=== PATIENT | female | born 1945 | race Hispanic/Latino ===

== ENCOUNTER 2017-08-02 09:27 | Inpatient (IN) | payer MEDICARE, BC ==
[2017-08-02 09:38] VITALS: BMI 29.2
[2017-08-02] MEDS ORDERED: Sodium Chloride 0.9% 1,000 ML IV ONE ×2 (09:46→19:30)
--- NOTE | 2017-08-02 09:47 | C.PDOC ---
History Of Present Illness 72 yr old female referred to ER by PMD for acute appendicitis and RLQ pain for the past 6 days. Patient states the pain is "dull", intermittent and localized. Patient also reports of subjective fever and nausea. Patient is s'/p outpatient CT on 08/01 with positive appendicitis. Patient was advised tasia come to ER at that time but wanted to come in today. Patient is NPO since 1699. Denies nausea , vomiting, diarrhea, incontinence, weakness or numbness. REFERRED BY PMD FOR ACUTE APPY. RLQ PAIN X 6 DAYS. "DULL", INTERMIT, LOCALIZED. SUBJ FEVER. +NAUSEA. SP OUTPT CT 08/01 +APPY. PT WAS ADVISED TO COME TO ER @ THAT TIME BUT WANTED TO COME IN TODAY. PSH NEG. NPO 1699 EXAM NONTOXIC NAD ABD +RLQ TEND MILD SOFT NO R/G REMAINDER NEG Time Seen by Provider: 08/02/17 09:44 Chief Complaint (Nursing): Abdominal Pain History Per: Patient History/Exam Limitations: no limitations Onset/Duration Of Symptoms: Days (6), Intermittent Episodes Location Of Pain/Discomfort: RLQ Past Medical History Reviewed: Historical Data, Nursing Documentation, Vital Signs Vital Signs: Last Vital Signs Temp Pulse 73 08/02/17 10:34 Resp 18 08/02/17 10:34 BP 150/71 08/02/17 10:34 Pulse Ox 99 08/02/17 10:34 - [facility] Procedures OTHER LOCAL DESTRUC SKIN (04/27/98) Family History: States: No Known Family Hx Review Of Systems Except As Marked, All Systems Reviewed And Found Negative. Constitutional: Positive for: Fever (Subjective) Gastrointestinal: Positive for: Abdominal Pain (RLQ). Negative for: Nausea, Vomiting, Diarrhea Genitourinary: Negative for: Incontinence Neurological: Negative for: Weakness, Numbness Physical Exam - Physical Exam Appears: Non-toxic, No Acute Distress Skin: Warm, Dry, No Rash Head: Atraumatic, Normacephalic Oral Mucosa: Moist Chest: Symmetrical, No Tenderness Cardiovascular: Rhythm Regular, No Murmur Respiratory: Normal Breath Sounds, No Rales, No Rhonchi, No Stridor, No Wheezing Gastrointestinal/Abdominal: Soft, Tenderness (RLQ mild tenderness), No Guarding , No Rebound Back: Normal Inspection, No CVA Tenderness Extremity: Normal ROM, No Swelling Neurological/Psych: Oriented x3, Normal Speech, Normal Motor ED Course And Treatment - Laboratory Results Result Diagrams: 08/02/17 10:16 08/02/17 10:16 ECG: Interpreted By Me ECG Rhythm: Sinus Rhythm ECG Interpretation: Normal Rate From EC (BPM) - Radiology CXR: Interpreted by Me, Viewed By Me CXR Interpretation: Yes: No Acute Disease Progress - Re-Evaluation Re-evaluation Note: 08/02/17 09:47 d/w dr loera will admit. - Data Reviewed Data Reviewed: Lab, Diagnostic imaging, EKG, Old records - Continuity of Care Discussed patient case with:: Patient, PMD Discussed pt. case with fitness consultant/specialty: General Surgery Medical Decision Making Medical Decision Making: PLAN: * CXR * EKG * CBC * CMP * Urinalysis * Sodium Chloride IV Disposition Counseled Patient/Family Regarding: Studies Performed, Diagnosis - Disposition Disposition: HOSPITALIZED Disposition Time: 09:48 Condition: STABLE - POA Present On Arrival: None - Clinical Impression Clinical Impression: Acute appendicitis - Scribe Statement The provider has reviewed the documentation as recorded by the Garrett Priest Provider Attestation: All medical record entries made by the Nasreenibe were at my direction and personally dictated by me. I have reviewed the chart and agree that the record accurately reflects my personal performance of the history, physical exam, medical decision making, and the department course for this patient. I have also personally directed, reviewed, and agree with the discharge instructions and disposition. Decision To Admit - Pt Status Changed To: Hospital Disposition Of: Inpatient - Admit Certification Admit to Inpatient:: After my assessment, the patient will require hospitalization for at least two midnights. This is because of the severity of symptoms shown, intensity of services needed, and/or the medical risk in this patient being treated as an outpatient. - InPatient: Physician Admission Certification:: SEE NOTE - . Bed Request Type: Regular Admitting Physician: Bertha Loera Patient Diagnosis: Acute appendicitis
--- NOTE | 2017-08-02 10:10 | RAD ---
PROCEDURE: CHEST RADIOGRAPH, 1 VIEW HISTORY: Pre Op COMPARISON: None available. FINDINGS: LUNGS: No consolidation. The interstitial and pulmonary vascular markings are mildly prominent. 1.2 x 0.6 cm oval hyper dense nodularity projecting over left upper lobe, anterior left 2nd rib and the estimated posterior 6th rib Granuloma versus bone island are most likely explanations PLEURA: No pneumothorax or pleural fluid seen. CARDIOVASCULAR: Mall heart size. Pulmonary vascular and interstitial markings mildly prominent. Right hilum also borderline prominent. Recommend comparison with any outside chest x-rays to your sore older to ensure stability. If no films exists than a CT chest to exclude any right hilar pathology is advised. OSSEOUS STRUCTURES: No significant abnormalities. VISUALIZED UPPER ABDOMEN: Normal. OTHER FINDINGS: None. IMPRESSION: No acute pulmonary infiltrate Borderline prominence to the right hilum -indeterminate. Recommend comparison with outside chest x-rays -2 years or older to ensure stability-if available. The interstitial and pulmonary vasculature markings are also borderline prominent. These may be a chronic status. Left upper lobe calcified granuloma versus bone island.
[2017-08-02 10:21] LABS: BASO % 0.4 % (0.0-2.0); EOS # 0.1 K/uL (0.0-0.7); EOS % 2.8 % (0.0-4.0); HEMATOCRIT 50.1 % (34.0-47.0); LYMPH # 1.3 K/uL (1.0-4.3); LYMPH % 27.8 % (20.0-40.0); MEAN CELL VOLUME 92.4 fL (81.0-99.0); MEAN CORPUSCULAR HGB CONC 34.6 g/dL (33.0-37.0); MEAN PLATELET VOLUME 9.7 fL (7.2-11.7); MONO # 0.5 K/uL (0.0-0.8); MONO % 9.8 % (0.0-10.0); NRBC % 0.1 % (0.0-2.0); RED CELL DISTRIBUTION WIDTH 13.5 % (11.5-14.5); WHITE BLOOD COUNT 4.6 K/uL (4.8-10.8)
[2017-08-02 10:35] LABS: CHLORIDE 97 mmol/L (98-107); POTASSIUM 3.8 mmol/L (3.6-5.2); SODIUM 135 mmol/L (132-148)
[2017-08-02 10:37] LABS: URINE BACTERIA RARE (<OCC); URINE BILIRUBIN NEGATIVE (NEGATIVE); URINE BLOOD NEGATIVE (NEGATIVE); URINE COLOR Straw (YELLOW); URINE GLUCOSE (UA) NORMAL (Normal); URINE KETONE NEGATIVE (NEGATIVE); URINE LEUKOCYTE ESTERASE NEG Leu/uL (Negative); URINE PROTEIN NEGATIVE (NEGATIVE); URINE UROBILINOGEN NORMAL mg/dL (0.2-1.0); WBC URINE < 1 /hpf (0-5)
[2017-08-02 10:37] LABS: GFR AFRICAN-AMERICAN > 60
[2017-08-02 10:38] LABS: ALB/GLOB RATIO 1.6 (1.0-2.1); ALKALINE PHOSPHATASE 58 U/L (38-126); ALT/SGPT 34 U/L (9-52); AST/SGOT 38 U/L (14-36); BILIRUBIN,TOTAL 0.8 mg/dL (0.2-1.3); BLOOD UREA NITROGEN 14 mg/dL (7-17); CARBON DIOXIDE 27 mmol/L (22-30); GLUCOSE,RANDOM 118 mg/dL (65-105); TOTAL PROTEIN 7.6 g/dL (6.3-8.3)
[2017-08-02 10:39] LABS: CALCIUM 9.3 mg/dl (8.6-10.4)
[2017-08-02] MEDS ORDERED: Lactated Ringer's 1,000 ML IV ONE (16:18)
[2017-08-02] MEDS ORDERED: Propofol 10 mg/ml Inj (20 ML) ONE (16:21)
[2017-08-02] MEDS ORDERED: Midazolam 2 MG/2 ML VIAL ONE (16:21)
[2017-08-02] MEDS ORDERED: Succinylcholine Chloride 20 mg/ml Syr (5 ml) IV ONE (16:22)
[2017-08-02] MEDS: Piperacill/Tazo 3.375gm in Dex 3.375 GM/50 ML BAG IVPB SCH ×3 (16:35→21:59)
[2017-08-02] MEDS ORDERED: Bupivacaine HCl 0.25% PF (10 ml) Inj ONE (17:47)
[2017-08-02] MEDS ORDERED: Oxycodone/Acetaminophen 5/325 mg Tab PO PRN (18:09)
--- NOTE | 2017-08-02 18:09 | PCM.SURG1 ---
Surgeon's Initial Post Op Note - Surgeon's Notes Surgeon: Dr. Carpio Mosaic Layer: Dr. Delcid PGY2 Type of Anesthesia: General Endo Pre-Operative Diagnosis: acute appendicitis Operative Findings: see dictation Post-Operative Diagnosis: same Operation Performed: laparoscopic appendectomy, KALINA Specimen/Specimens Removed: appendix Estimated Blood Loss: EBL {In ML}: 20 Blood Products Given: N/A Drains Used: No Drains Post-Op Condition: Good Date of Surgery/Procedure: 08/02/17 Time of Surgery/Procedure: 16:15
[2017-08-02] MEDS: HYDROmorphone 0.5 mg/0.5 ml ISec IVP PRN ×3 (18:22→19:09)
[2017-08-02] MEDS ORDERED: Morphine 4 MG/ML VIAL IVP PRN (22:08)
[2017-08-03] MEDS: Oxycodone/Acetaminophen 5/325 mg Tab PO PRN ×2 (02:21→12:43)
[2017-08-03] MEDS: Benzocaine/Menthol (Cepacol) Lozenge MT PRN ×2 (02:24→10:38)
[2017-08-03] MEDS: Piperacill/Tazo 3.375gm in Dex 3.375 GM/50 ML BAG IVPB SCH ×4 (05:33→21:21)
--- NOTE | 2017-08-03 09:12 | OP ---
PROCEDURE DATE: 08/02/2017 PREOPERATIVE DIAGNOSIS: Acute appendicitis. POSTOPERATIVE DIAGNOSIS: Acute appendicitis. PROCEDURE CARRIED OUT: Laparoscopic appendectomy. SURGEON: Mark Carpio Jr., MD SECURITY ASSESSOR: Dr. Scott. ANESTHESIOLOGIST: Mr. Rajesh CRNA. INDICATIONS: The patient is a older women admitted to the hospital with abdominal pain, found to have appendicitis on the CAT scan. OPERATIVE FINDINGS: General abdominal exploration was unremarkable. There were some adhesions in the lower midline, which initially and required lysis of adhesions. The appendix tip was very swollen as said on the CAT scan. We were able to divide the base of the appendix with stapling device and then using a ligature device to divide the mesoappendix. Hemostasis was excellent. The ports were closed completely without any evidence of any air leak and the skin was closed with subcuticular closure. Blood loss for the procedure was less than 20 mL. Operation carried out was laparoscopic appendectomy. The findings were consistent with acute appendicitis. Makr Carpio Jr., MD cc: Bertha Loera MD
[2017-08-03] MEDS ORDERED: NISOLDIPINE 17 MG PO SCH (10:00)
--- NOTE | 2017-08-03 10:31 | CP.PCM.PN ---
Subjective - Date & Time of Evaluation Date of Evaluation: 08/03/17 Time of Evaluation: 07:00 - Subjective Subjective: SURGERY PROGRESS NOTE FOR DR. GARDNER Patient seen and examined at bedside. She tolerating her regular diet for breakfast. She is urinating and ambulating. She has not used the IS yet. She has some pain at the incision sites. She complains of sore throat. She has cepacol ordered. Objective - Vital Signs/Intake and Output Vital Signs (last 24 hours): Temp Pulse Resp BP Pulse Ox 98.0 F 58 L 18 142/68 93 L 08/03/17 07:50 08/03/17 07:50 08/03/17 07:50 08/03/17 07:50 08/03/17 07:50 Intake and Output: 08/03/17 08/03/17 06:59 18:59 Intake Total 350 Balance 350 - Medications Medications: Current Medications Acetaminophen (Tylenol 325mg Tab) 650 mg PO Q6 PRN PRN Reason: Pain, Mild (1-3) Benzocaine/Menthol (Cepacol Sore Throat) 1 tee MT Q2 PRN PRN Reason: Sore Throat Last Admin: 08/03/17 02:24 Dose: 1 tee Fenofibrate (Tricor) 48 mg PO DAILY [facility] Home Med (Dexlansoprazole [Dexilant]) 60 mg PO DAILY [facility] Home Med (Nisoldipine [Nisoldipine]) 17 mg PO DAILY [facility] Hydrochlorothiazide (Microzide) 12.5 mg PO DAILY [facility] Piperacillin Sod/Tazobactam Sod (Zosyn 3.375 Gm Iv Premix) 3.375 gm in 50 mls @ 100 mls/hr IVPB Q6H [facility] Last Admin: 08/03/17 05:33 Dose: 100 mls/hr Losartan Potassium (Cozaar) 100 mg PO DAILY [facility] Morphine Sulfate (Morphine) 4 mg IVP Q4 PRN PRN Reason: Pain, severe (8-10) Ondansetron HCl (Zofran Inj) 4 mg IVP Q4 PRN PRN Reason: Nausea/Vomiting Last Admin: 08/02/17 23:40 Dose: 4 mg Oxycodone/Acetaminophen (Percocet 5/325 Mg Tab) 1 tab PO Q4H PRN PRN Reason: Pain, moderate (4-7) Stop: 08/05/17 18:10 Last Admin: 08/03/17 02:21 Dose: 1 tab Pneumococcal Polyvalent Vaccine (Pneumovax 23 Vaccine) 0.5 ml IM .ONCE ONE Stop: 08/05/17 10:01 Rosuvastatin Calcium (Crestor) 5 mg PO HS [facility] - Labs Labs: 08/02/17 10:16 08/02/17 10:16 PT 11.3 SECONDS (9.7-12.2) 08/02/17 10:16 INR 1.0 08/02/17 10:16 APTT 33 SECONDS (21-34) 08/02/17 10:16 - Constitutional Appears: Non-toxic, No Acute Distress - Head Exam Head Exam: ATRAUMATIC, NORMAL INSPECTION - Eye Exam Eye Exam: EOMI, Normal appearance - Respiratory Exam Respiratory Exam: NORMAL BREATHING PATTERN. absent: Respiratory Distress - Cardiovascular Exam Cardiovascular Exam: +S1, +S2 - GI/Abdominal Exam GI & Abdominal Exam: Soft, Tenderness (mild tenderness at laparoscopic incision sites). absent: Distended, Firm, Guarding, Rigid, Rebound Additional comments: Dressings clean/dry/intact - Neurological Exam Neurological Exam: Alert, Awake, CN II-XII Intact - Psychiatric Exam Psychiatric exam: Normal Affect, Normal Mood - Skin Skin Exam: Dry, Warm Assessment and Plan - Assessment and Plan (Free Text) Assessment: 72yo F with appendicitis s/p laparoscopic appendectomy POD#1 - Afebrile, VSS - Tolerating diet - Encouraged ambulation and IS use - Continue IV Zosyn - Discussed plan with Dr. Shirin Blanchard PGY-3
--- NOTE | 2017-08-03 16:43 | CT ---
PROCEDURE: CT Chest without contrast HISTORY: hilar mass COMPARISON: Compare is made to the previous CT of the abdomen which includes part of the lung bases done on 08/01/2017. No prior CT of the chest available for comparison. TECHNIQUE: Contiguous axial images were obtained through the chest without intravenous contrast enhancement. Sagittal and coronal reconstructions were performed. Radiation dose (DLP): 812.95 mGy-cm. This CT exam was performed using one or more of the following dose reduction techniques: Automated exposure control, adjustment of the mA and/or kV according to patient size, and/or use of iterative reconstruction technique. FINDINGS: LUNGS: There is airspace consolidation at the inferior aspect of the left lung lower lobe new compared to the previous CT abdomen study may represent atelectasis or pneumonia. The differential consolidation include also aspiration. Small consolidation at the posterior lower portion of the right lung lower lobe also noted which could be due to atelectasis. There is 5 millimeter calcified nodule at the left lung upper lobe. MEDIASTINUM: Unremarkable thoracic aorta. No aneurysm. Normal sized heart. Main pulmonary artery unremarkable. No vascular congestion. No lymphadenopathy. PLEURA: Interval appearance of small bilateral pleural effusions slightly larger on the left since the previous exam. BONES: No fracture. No destructive lesion. UPPER ABDOMEN: There is a small amount of free air seen in the upper abdomen could represent post surgical changes given the patient's history of recent lap appendectomy on 08/02/2017. Re- demonstration of 4.5 centimeter left adrenal mass. OTHER FINDINGS: None. IMPRESSION: No evidence of hilar mass. There is airspace consolidation at the lower portion of the left lung lower lobe may represent atelectasis or pneumonia. Small opacity at the right lung base likely represent atelectasis. Trace/small bilateral pleural effusions slightly larger on the left.
--- NOTE | 2017-08-03 22:55 | CP.PCM.PN ---
Subjective - Date & Time of Evaluation Date of Evaluation: 08/03/17 Time of Evaluation: 22:53 - Subjective Subjective: CT chest showing LL pneumonia pt is coughing lower abd pain no nause no vomiting no BM\ urine good spo2 84% in RA ON 4L O2 spo2 90% on antibiotics bronchodilators incentive spirometer DVT an dGI prophylaxis Objective - Vital Signs/Intake and Output Vital Signs (last 24 hours): Temp Pulse Resp BP Pulse Ox 99.2 F 57 L 20 152/66 H 95 08/03/17 16:20 08/03/17 16:20 08/03/17 16:20 08/03/17 16:20 08/03/17 16:20 Intake and Output: 08/03/17 08/04/17 18:59 06:59 Intake Total 240 Balance 240 - Medications Medications: Current Medications Acetaminophen (Tylenol 325mg Tab) 650 mg PO Q6 PRN PRN Reason: Pain, Mild (1-3) Amlodipine Besylate (Norvasc) 5 mg PO DAILY [facility] Benzocaine/Menthol (Cepacol Sore Throat) 1 tee MT Q2 PRN PRN Reason: Sore Throat Last Admin: 08/03/17 10:38 Dose: 1 tee Fenofibrate (Tricor) 48 mg PO DAILY [facility] Last Admin: 08/03/17 10:37 Dose: 48 mg Home Med (Nisoldipine [Nisoldipine]) 17 mg PO DAILY [facility] Hydrochlorothiazide (Microzide) 12.5 mg PO DAILY [facility] Last Admin: 08/03/17 10:38 Dose: 12.5 mg Piperacillin Sod/Tazobactam Sod (Zosyn 3.375 Gm Iv Premix) 3.375 gm in 50 mls @ 100 mls/hr IVPB Q6H [facility] Last Admin: 08/03/17 21:21 Dose: 100 mls/hr Losartan Potassium (Cozaar) 100 mg PO DAILY [facility] Last Admin: 08/03/17 10:37 Dose: 100 mg Morphine Sulfate (Morphine) 4 mg IVP Q4 PRN PRN Reason: Pain, severe (8-10) Ondansetron HCl (Zofran Inj) 4 mg IVP Q4 PRN PRN Reason: Nausea/Vomiting Last Admin: 08/02/17 23:40 Dose: 4 mg Oxycodone/Acetaminophen (Percocet 5/325 Mg Tab) 1 tab PO Q4H PRN PRN Reason: Pain, moderate (4-7) Stop: 08/05/17 18:10 Last Admin: 08/03/17 12:43 Dose: 1 tab Pantoprazole Sodium (Protonix Ec Tab) 40 mg PO DAILY [facility] Pneumococcal Polyvalent Vaccine (Pneumovax 23 Vaccine) 0.5 ml IM .ONCE ONE Stop: 08/05/17 10:01 Rosuvastatin Calcium (Crestor) 5 mg PO HS [facility] Last Admin: 08/03/17 21:21 Dose: 5 mg - Labs Labs: 08/02/17 10:16 08/02/17 10:16 PT 11.3 SECONDS (9.7-12.2) 08/02/17 10:16 INR 1.0 08/02/17 10:16 APTT 33 SECONDS (21-34) 08/02/17 10:16
[2017-08-04] MEDS: Albuterol-Ipratrop 3 mg / 0.5 (3 ml) UD INH SCH ×4 (01:09→20:10)
[2017-08-04] MEDS: Piperacill/Tazo 3.375gm in Dex 3.375 GM/50 ML BAG IVPB SCH ×4 (03:15→22:51)
[2017-08-04 08:34] LABS: BASO % 0.2 % (0.0-2.0); EOS # 0.1 K/uL (0.0-0.7); EOS % 1.1 % (0.0-4.0); HEMATOCRIT 46.2 % (34.0-47.0); LYMPH # 1.1 K/uL (1.0-4.3); LYMPH % 18.5 % (20.0-40.0); MEAN CELL VOLUME 93.1 fL (81.0-99.0); MEAN CORPUSCULAR HEMOGLOBIN 30.9 pg (27.0-31.0); MEAN CORPUSCULAR HGB CONC 33.2 g/dL (33.0-37.0); MEAN PLATELET VOLUME 10.3 fL (7.2-11.7); MONO # 0.4 K/uL (0.0-0.8); MONO % 7.3 % (0.0-10.0); RED CELL DISTRIBUTION WIDTH 13.5 % (11.5-14.5)
[2017-08-04 08:59] LABS: CHLORIDE 97 mmol/L (98-107); POTASSIUM 3.5 mmol/L (3.6-5.2); SODIUM 136 mmol/L (132-148)
[2017-08-04 09:01] LABS: GFR AFRICAN-AMERICAN > 60
[2017-08-04 09:02] LABS: ALB/GLOB RATIO 1.5 (1.0-2.1); ALKALINE PHOSPHATASE 48 U/L (38-126); ALT/SGPT 32 U/L (9-52); AST/SGOT 26 U/L (14-36); BILIRUBIN,TOTAL 0.9 mg/dL (0.2-1.3); BLOOD UREA NITROGEN 10 mg/dL (7-17); CALCIUM 8.5 mg/dl (8.6-10.4); CARBON DIOXIDE 31 mmol/L (22-30); GLUCOSE,RANDOM 107 mg/dL (65-105); TOTAL PROTEIN 6.5 g/dL (6.3-8.3)
[2017-08-04] MEDS ORDERED: Influenza Vaccine 60 mcg/0.5 mL SYR (4YR UP) IM ONE (10:00)
[2017-08-04] MEDS: Pantoprazole 40 mg EC Tab PO SCH (10:26)
--- NOTE | 2017-08-04 10:30 | CP.PCM.PN ---
Subjective - Date & Time of Evaluation Date of Evaluation: 08/04/17 Time of Evaluation: 10:27 - Subjective Subjective: Surgery: Dr. Dunaway Patient doing well today. tolerating diet. denies n/v/f/c. Ambulating frequently and using IS. Pain controlled. Objective - Vital Signs/Intake and Output Vital Signs (last 24 hours): Temp Pulse Resp BP Pulse Ox 98.7 F 65 18 144/63 96 08/04/17 07:50 08/04/17 07:50 08/04/17 07:50 08/04/17 07:50 08/04/17 07:50 Intake and Output: 08/04/17 08/04/17 06:59 18:59 Intake Total 290 Balance 290 - Medications Medications: Current Medications Acetaminophen (Tylenol 325mg Tab) 650 mg PO Q6 PRN PRN Reason: Pain, Mild (1-3) Albuterol/Ipratropium (Duoneb 3 Mg/0.5 Mg (3 Ml) Ud) 3 ml INH RQ6 [facility] Last Admin: 08/04/17 01:09 Dose: Not Given Amlodipine Besylate (Norvasc) 5 mg PO DAILY [facility] Benzocaine/Menthol (Cepacol Sore Throat) 1 tee MT Q2 PRN PRN Reason: Sore Throat Last Admin: 08/03/17 10:38 Dose: 1 tee Fenofibrate (Tricor) 48 mg PO DAILY [facility] Last Admin: 08/03/17 10:37 Dose: 48 mg Heparin Sodium (Porcine) (Heparin) 5,000 units SC Q8H [facility] Last Admin: 08/04/17 06:24 Dose: 5,000 units Piperacillin Sod/Tazobactam Sod (Zosyn 3.375 Gm Iv Premix) 3.375 gm in 50 mls @ 100 mls/hr IVPB Q6H [facility] Last Admin: 08/04/17 03:15 Dose: 100 mls/hr Losartan Potassium (Cozaar) 100 mg PO DAILY [facility] Last Admin: 08/03/17 10:37 Dose: 100 mg Morphine Sulfate (Morphine) 4 mg IVP Q4 PRN PRN Reason: Pain, severe (8-10) Ondansetron HCl (Zofran Inj) 4 mg IVP Q4 PRN PRN Reason: Nausea/Vomiting Last Admin: 08/02/17 23:40 Dose: 4 mg Pantoprazole Sodium (Protonix Ec Tab) 40 mg PO DAILY [facility] Pneumococcal Polyvalent Vaccine (Pneumovax 23 Vaccine) 0.5 ml IM .ONCE ONE Stop: 08/05/17 10:01 Rosuvastatin Calcium (Crestor) 5 mg PO HS [facility] Last Admin: 08/03/17 21:21 Dose: 5 mg - Labs Labs: 08/04/17 08:25 08/04/17 08:25 PT 11.3 SECONDS (9.7-12.2) 08/02/17 10:16 INR 1.0 08/02/17 10:16 APTT 33 SECONDS (21-34) 08/02/17 10:16 - Constitutional Appears: Non-toxic, No Acute Distress - Head Exam Head Exam: ATRAUMATIC, NORMOCEPHALIC - Eye Exam Eye Exam: EOMI, Normal appearance - ENT Exam ENT Exam: Mucous Membranes Moist - Respiratory Exam Respiratory Exam: NORMAL BREATHING PATTERN. absent: Respiratory Distress - Cardiovascular Exam Cardiovascular Exam: REGULAR RHYTHM. absent: Tachycardia - GI/Abdominal Exam GI & Abdominal Exam: Soft. absent: Distended, Guarding, Tenderness, Rebound Additional comments: Incisions CDI w/ bruising hugh-incisional - Neurological Exam Neurological Exam: Alert, Awake - Psychiatric Exam Psychiatric exam: Normal Affect, Normal Mood - Skin Skin Exam: Dry, Warm Assessment and Plan - Assessment and Plan (Free Text) Assessment: 72 y/o F s/p lap appy POD2 Plan: -cleared for d/c from surgical standpoint -f/u Dr. Dunaway in 1 week, call office for appointment -can shower, do not bathe or soak incisions -cont frequent ambulating and IS use -patient seen and examined w/ Dr. Dunaway [facility] PGY3
--- NOTE | 2017-08-04 10:30 | CARD ---
APPROVED REPORT EKG Measurement Heart [id number] <Conclusion> Normal sinus rhythm with sinus arrhythmia Normal ECG
[2017-08-04 16:31] VITALS: RESP 20
--- NOTE | 2017-08-04 17:44 | CP.PCM.PN ---
Subjective - Date & Time of Evaluation Date of Evaluation: 08/04/17 Time of Evaluation: 17:43 - Subjective Subjective: Patient today had an episode of dark stools. No much pain noted. Cough present. Oxygenation is improving. Room air saturation is 87% Vital signs reviewed No neck vein distention noted Chest good air entry bilaterally, no wheezing or rales noted CVS regular heart sound, no murmur noted Abdomen soft, nontender. Extremities no pedal edema [employer] alert awake oriented -3, no functional neurological deficit Sputum culture pending Assessment and recommendation: 72-year-old female status post appendectomy. History of hypertension. COPD. Now having pneumonia. Dark stools noted. We will monitor the hemoglobin. As an outpatient will get GI evaluation if hemoglobin is stable. Follow-up the patient Objective - Vital Signs/Intake and Output Vital Signs (last 24 hours): Temp Pulse Resp BP Pulse Ox 98.2 F 69 20 129/69 94 L 08/04/17 15:25 08/04/17 15:25 08/04/17 15:25 08/04/17 15:25 08/04/17 15:25 Intake and Output: 08/04/17 08/04/17 06:59 18:59 Intake Total 290 783 Balance 290 783 - Medications Medications: Current Medications Acetaminophen (Tylenol 325mg Tab) 650 mg PO Q6 PRN PRN Reason: Pain, Mild (1-3) Last Admin: 08/04/17 13:31 Dose: 650 mg Albuterol/Ipratropium (Duoneb 3 Mg/0.5 Mg (3 Ml) Ud) 3 ml INH RQ6 [facility] Last Admin: 08/04/17 13:23 Dose: Not Given Amlodipine Besylate (Norvasc) 5 mg PO DAILY [facility] Last Admin: 08/04/17 10:26 Dose: 5 mg Benzocaine/Menthol (Cepacol Sore Throat) 1 tee MT Q2 PRN PRN Reason: Sore Throat Last Admin: 08/03/17 10:38 Dose: 1 tee Fenofibrate (Tricor) 48 mg PO DAILY [facility] Last Admin: 08/04/17 10:33 Dose: Not Given Heparin Sodium (Porcine) (Heparin) 5,000 units SC Q8H [facility] Last Admin: 08/04/17 06:24 Dose: 5,000 units Piperacillin Sod/Tazobactam Sod (Zosyn 3.375 Gm Iv Premix) 3.375 gm in 50 mls @ 100 mls/hr IVPB Q6H [facility] Last Admin: 08/04/17 10:28 Dose: 100 mls/hr Losartan Potassium (Cozaar) 100 mg PO DAILY [facility] Last Admin: 08/04/17 10:26 Dose: 100 mg Morphine Sulfate (Morphine) 4 mg IVP Q4 PRN PRN Reason: Pain, severe (8-10) Ondansetron HCl (Zofran Inj) 4 mg IVP Q4 PRN PRN Reason: Nausea/Vomiting Last Admin: 08/02/17 23:40 Dose: 4 mg Pantoprazole Sodium (Protonix Ec Tab) 40 mg PO DAILY [facility] Last Admin: 08/04/17 10:26 Dose: 40 mg Pneumococcal Polyvalent Vaccine (Pneumovax 23 Vaccine) 0.5 ml IM .ONCE ONE Stop: 08/05/17 10:01 Rosuvastatin Calcium (Crestor) 5 mg PO HS [facility] Last Admin: 08/03/17 21:21 Dose: 5 mg - Labs Labs: 08/04/17 08:25 08/04/17 08:25 PT 11.3 SECONDS (9.7-12.2) 08/02/17 10:16 INR 1.0 08/02/17 10:16 APTT 33 SECONDS (21-34) 08/02/17 10:16
[2017-08-05] MEDS: Albuterol-Ipratrop 3 mg / 0.5 (3 ml) UD INH SCH ×4 (01:30→19:51)
[2017-08-05] MEDS: Piperacill/Tazo 3.375gm in Dex 3.375 GM/50 ML BAG IVPB SCH ×4 (03:12→21:22)
[2017-08-05 08:42] LABS: BASO % 0.5 % (0.0-2.0); EOS # 0.1 K/uL (0.0-0.7); EOS % 2.2 % (0.0-4.0); HEMATOCRIT 43.4 % (34.0-47.0); LYMPH # 1.2 K/uL (1.0-4.3); LYMPH % 24.3 % (20.0-40.0); MEAN CELL VOLUME 93.1 fL (81.0-99.0); MEAN CORPUSCULAR HEMOGLOBIN 31.7 pg (27.0-31.0); MEAN CORPUSCULAR HGB CONC 34.1 g/dL (33.0-37.0); MEAN PLATELET VOLUME 10.5 fL (7.2-11.7); MONO # 0.4 K/uL (0.0-0.8); MONO % 8.4 % (0.0-10.0); NRBC % 0.1 % (0.0-2.0); RED CELL DISTRIBUTION WIDTH 13.4 % (11.5-14.5); WHITE BLOOD COUNT 4.8 K/uL (4.8-10.8)
[2017-08-05 08:50] LABS: CHLORIDE 99 mmol/L (98-107); POTASSIUM 3.6 mmol/L (3.6-5.2); SODIUM 136 mmol/L (132-148)
[2017-08-05 08:52] LABS: BILIRUBIN,TOTAL 0.9 mg/dL (0.2-1.3); GFR AFRICAN-AMERICAN > 60
[2017-08-05 08:53] LABS: ALB/GLOB RATIO 1.5 (1.0-2.1); ALKALINE PHOSPHATASE 44 U/L (38-126); ALT/SGPT 30 U/L (9-52); AST/SGOT 27 U/L (14-36); BLOOD UREA NITROGEN 13 mg/dL (7-17); CALCIUM 8.9 mg/dl (8.6-10.4); CARBON DIOXIDE 32 mmol/L (22-30); GLUCOSE,RANDOM 106 mg/dL (65-105)
[2017-08-05] MEDS ORDERED: Pneumococcal 23-Valent Vaccine IM ONE (10:00)
[2017-08-05] MEDS: Pantoprazole 40 mg EC Tab PO SCH (10:04)
--- NOTE | 2017-08-05 19:10 | CP.PCM.PN ---
Subjective - Date & Time of Evaluation Date of Evaluation: 08/05/17 Time of Evaluation: 19:09 - Subjective Subjective: pt is doing ok able to walk no cough no wheezing eating ok dark stool will check cbc have no BM will do lactulose for d/c in am Objective - Vital Signs/Intake and Output Vital Signs (last 24 hours): Temp Pulse Resp BP Pulse Ox 98.5 F 61 20 147/73 90 L 08/05/17 16:00 08/05/17 16:00 08/05/17 16:00 08/05/17 16:00 08/05/17 16:00 Intake and Output: 08/05/17 08/06/17 18:59 06:59 Intake Total 545 Balance 545 - Medications Medications: Current Medications Acetaminophen (Tylenol 325mg Tab) 650 mg PO Q6 PRN PRN Reason: Pain, Mild (1-3) Last Admin: 08/04/17 13:31 Dose: 650 mg Albuterol/Ipratropium (Duoneb 3 Mg/0.5 Mg (3 Ml) Ud) 3 ml INH RQ6 [facility] Last Admin: 08/05/17 13:46 Dose: 3 ml Amlodipine Besylate (Norvasc) 5 mg PO DAILY [facility] Last Admin: 08/05/17 10:04 Dose: 5 mg Bisacodyl (Dulcolax) 10 mg IA ONCE ONE Stop: 08/06/17 06:01 Fenofibrate (Tricor) 48 mg PO HS [facility] Heparin Sodium (Porcine) (Heparin) 5,000 units SC Q8H [facility] Last Admin: 08/04/17 06:24 Dose: 5,000 units Piperacillin Sod/Tazobactam Sod (Zosyn 3.375 Gm Iv Premix) 3.375 gm in 50 mls @ 100 mls/hr IVPB Q6H [facility] Last Admin: 08/05/17 17:04 Dose: 100 mls/hr Lactulose (Enulose) 20 gm PO HS [facility] Losartan Potassium (Cozaar) 100 mg PO DAILY [facility] Last Admin: 08/05/17 10:04 Dose: 100 mg Morphine Sulfate (Morphine) 4 mg IVP Q4 PRN PRN Reason: Pain, severe (8-10) Ondansetron HCl (Zofran Inj) 4 mg IVP Q4 PRN PRN Reason: Nausea/Vomiting Last Admin: 08/02/17 23:40 Dose: 4 mg Pantoprazole Sodium (Protonix Ec Tab) 40 mg PO DAILY [facility] Last Admin: 08/05/17 10:04 Dose: 40 mg Rosuvastatin Calcium (Crestor) 5 mg PO HS [facility] Last Admin: 08/04/17 22:51 Dose: 5 mg - Labs Labs: 08/05/17 08:26 08/05/17 08:26 PT 11.3 SECONDS (9.7-12.2) 08/02/17 10:16 INR 1.0 08/02/17 10:16 APTT 33 SECONDS (21-34) 08/02/17 10:16
[2017-08-06] MEDS: Albuterol-Ipratrop 3 mg / 0.5 (3 ml) UD INH SCH ×3 (01:17→13:18)
[2017-08-06] MEDS: Piperacill/Tazo 3.375gm in Dex 3.375 GM/50 ML BAG IVPB SCH ×2 (03:44→10:13)
[2017-08-06 06:53] LABS: BASO % 0.3 % (0.0-2.0); EOS # 0.2 K/uL (0.0-0.7); HEMATOCRIT 44.3 % (34.0-47.0); LYMPH # 1.5 K/uL (1.0-4.3); LYMPH % 28.1 % (20.0-40.0); MEAN CELL VOLUME 92.4 fL (81.0-99.0); MEAN CORPUSCULAR HEMOGLOBIN 31.3 pg (27.0-31.0); MEAN CORPUSCULAR HGB CONC 33.9 g/dL (33.0-37.0); MONO # 0.4 K/uL (0.0-0.8); MONO % 8.3 % (0.0-10.0); NRBC % 0.1 % (0.0-2.0); RED CELL DISTRIBUTION WIDTH 13.3 % (11.5-14.5); WHITE BLOOD COUNT 5.3 K/uL (4.8-10.8)
[2017-08-06 08:17] LABS: CHLORIDE 99 mmol/L (98-107); SODIUM 138 mmol/L (132-148)
[2017-08-06 08:18] LABS: POTASSIUM 3.6 mmol/L (3.6-5.2)
[2017-08-06 08:20] LABS: ALB/GLOB RATIO 1.5 (1.0-2.1); ALKALINE PHOSPHATASE 42 U/L (38-126); ALT/SGPT 35 U/L (9-52); AST/SGOT 30 U/L (14-36); BILIRUBIN,TOTAL 0.9 mg/dL (0.2-1.3); BLOOD UREA NITROGEN 11 mg/dL (7-17); CALCIUM 8.9 mg/dl (8.6-10.4); CARBON DIOXIDE 29 mmol/L (22-30); GFR AFRICAN-AMERICAN > 60; GLUCOSE,RANDOM 107 mg/dL (65-105); TOTAL PROTEIN 6.4 g/dL (6.3-8.3)
[2017-08-06 08:58] VITALS: BP 161/75; PULSE 58; TEMP 98.1; O2SAT 96
[2017-08-06] MEDS: Pantoprazole 40 mg EC Tab PO SCH (10:14)
--- NOTE | 2017-08-06 13:47 | CP.PCM.PN ---
Subjective - Date & Time of Evaluation Date of Evaluation: 08/06/17 Time of Evaluation: 13:45 - Subjective Subjective: Patient this morning doing well. Patient has 2 episodes of BM today. Mild abdominal pain. No nausea vomiting. Oxygen saturation is 93% in room air. Episodes of rest toes had a dark stools On examination: Vitals stable. Chest good air entry regular hospital nontender abdomen. Edema negative Labs reviewed WBC and hemoglobin is stable at this time. Patient has a stool guaiac positive. Assessment/recommendation: 72-year-old female with a history of COPD, hypertension, hypercholesterolemia admitted with acute appendicitis. Complicated with the left lung pneumonia. Currently improving. Patient is having dark stools. At this time patient may not be a candidate for colonoscopy but hemoglobin is stable. GI evaluation as an outpatient. We will hold antiplatelets for now. Will follow the patient. Patient will possibly be discharged home today Objective - Vital Signs/Intake and Output Vital Signs (last 24 hours): Temp Pulse Resp BP Pulse Ox 98.1 F 58 L 20 161/75 H 96 08/06/17 08:57 08/06/17 08:57 08/06/17 08:57 08/06/17 08:57 08/06/17 08:57 Intake and Output: 08/06/17 08/06/17 06:59 18:59 Intake Total 240 Balance 240 - Medications Medications: Current Medications Acetaminophen (Tylenol 325mg Tab) 650 mg PO Q6 PRN PRN Reason: Pain, Mild (1-3) Last Admin: 08/04/17 13:31 Dose: 650 mg Albuterol/Ipratropium (Duoneb 3 Mg/0.5 Mg (3 Ml) Ud) 3 ml INH RQ6 [facility] Last Admin: 08/06/17 13:18 Dose: 3 ml Amlodipine Besylate (Norvasc) 5 mg PO DAILY [facility] Last Admin: 08/06/17 10:14 Dose: 5 mg Fenofibrate (Tricor) 48 mg PO HS [facility] Last Admin: 08/05/17 21:24 Dose: 48 mg Heparin Sodium (Porcine) (Heparin) 5,000 units SC Q8H [facility] Last Admin: 08/04/17 06:24 Dose: 5,000 units Piperacillin Sod/Tazobactam Sod (Zosyn 3.375 Gm Iv Premix) 3.375 gm in 50 mls @ 100 mls/hr IVPB Q6H [facility] Last Admin: 08/06/17 10:13 Dose: 100 mls/hr Lactulose (Enulose) 20 gm PO HS [facility] Last Admin: 08/05/17 21:23 Dose: 20 gm Losartan Potassium (Cozaar) 100 mg PO DAILY [facility] Last Admin: 08/06/17 10:14 Dose: 100 mg Morphine Sulfate (Morphine) 4 mg IVP Q4 PRN PRN Reason: Pain, severe (8-10) Last Admin: 08/05/17 21:21 Dose: 4 mg Ondansetron HCl (Zofran Inj) 4 mg IVP Q4 PRN PRN Reason: Nausea/Vomiting Last Admin: 08/02/17 23:40 Dose: 4 mg Pantoprazole Sodium (Protonix Ec Tab) 40 mg PO DAILY [facility] Last Admin: 08/06/17 10:14 Dose: 40 mg Rosuvastatin Calcium (Crestor) 5 mg PO HS [facility] Last Admin: 08/05/17 21:23 Dose: 5 mg - Labs Labs: 08/06/17 06:45 08/06/17 06:45 PT 11.3 SECONDS (9.7-12.2) 08/02/17 10:16 INR 1.0 08/02/17 10:16 APTT 33 SECONDS (21-34) 08/02/17 10:16
--- NOTE | 2017-08-06 14:58 | CP.PCM.PN ---
Subjective - Date & Time of Evaluation Date of Evaluation: 08/06/17 Time of Evaluation: 14:58 Objective - Vital Signs/Intake and Output Vital Signs (last 24 hours): Temp Pulse Resp BP Pulse Ox 98.1 F 58 L 20 161/75 H 96 08/06/17 08:57 08/06/17 08:57 08/06/17 08:57 08/06/17 08:57 08/06/17 08:57 Intake and Output: 08/06/17 08/06/17 06:59 18:59 Intake Total 240 Balance 240 - Medications Medications: Current Medications Albuterol/Ipratropium (Duoneb 3 Mg/0.5 Mg (3 Ml) Ud) 3 ml INH RQ6 [facility] Last Admin: 08/06/17 13:18 Dose: 3 ml Amlodipine Besylate (Norvasc) 5 mg PO DAILY [facility] Last Admin: 08/06/17 10:14 Dose: 5 mg Fenofibrate (Tricor) 48 mg PO HS [facility] Last Admin: 08/05/17 21:24 Dose: 48 mg Heparin Sodium (Porcine) (Heparin) 5,000 units SC Q8H [facility] Last Admin: 08/04/17 06:24 Dose: 5,000 units Piperacillin Sod/Tazobactam Sod (Zosyn 3.375 Gm Iv Premix) 3.375 gm in 50 mls @ 100 mls/hr IVPB Q6H [facility] Last Admin: 08/06/17 10:13 Dose: 100 mls/hr Lactulose (Enulose) 20 gm PO HS [facility] Last Admin: 08/05/17 21:23 Dose: 20 gm Losartan Potassium (Cozaar) 100 mg PO DAILY [facility] Last Admin: 08/06/17 10:14 Dose: 100 mg Pantoprazole Sodium (Protonix Ec Tab) 40 mg PO DAILY [facility] Last Admin: 08/06/17 10:14 Dose: 40 mg Rosuvastatin Calcium (Crestor) 5 mg PO HS [facility] Last Admin: 08/05/17 21:23 Dose: 5 mg - Labs Labs: 08/06/17 06:45 08/06/17 06:45 PT 11.3 SECONDS (9.7-12.2) 08/02/17 10:16 INR 1.0 08/02/17 10:16 APTT 33 SECONDS (21-34) 08/02/17 10:16
== END 2017-08-06 15:45 | disposition home or self-care (01) | DRG 341 ==
LOC: C.ER 09:27 → INTOOBSV 09:47 → OBSVTOIN 09:47 → C.6T 09:47
PROVIDERS: ADMIT Internal Medicine; ATTEND Internal Medicine
PROC: 0DTJ4ZZ Resection of Appendix, Percutaneous Endoscopic Approach (ICD-10-PCS; principal; 2017-08-02 14:30)
DX: K35.80 Unspecified acute appendicitis (principal); J18.9 Pneumonia, unspecified organism; J44.0 Chronic obstructive pulmonary disease with (acute) lower respiratory infection; I10 Essential (primary) hypertension; E78.00 Pure hypercholesterolemia, unspecified; R19.5 Other fecal abnormalities; F17.210 Nicotine dependence, cigarettes, uncomplicated

== ENCOUNTER 2017-08-28 06:43 | Day surgery (SDC) | payer MEDICARE, BC ==
[2017-08-28] MEDS ORDERED: Lidocaine Hydrochloride 5 ML INJ ONE (08:16)
[2017-08-28] MEDS ORDERED: Propofol 10 mg/ml Inj (20 ML) ONE (08:16)
[2017-08-28] MEDS ORDERED: Lactated Ringer's 1,000 ML IV ONE (08:25)
--- NOTE | 2017-08-28 08:35 | CP.SDSHP ---
Same Day Surgery H & P - History Proposed Procedure: egd Pre-Op Diagnosis: melena. fecal occult blood loss - Previous Medical/Surgical History Cardiac: Hypertension, ASHD/CAD, PVD, Other (hyperlipidemia, ) Endocrine/Metabolic: Diabetes, Obesity Misc: Other (diverticulosis, DJD, gerd) Previous Surgical History: appendix 07/2017 - Allergies Allergies: Allergies aspirin Allergy (Mild, Verified 08/28/17 07:50) DIZZINESS Penicillins Allergy (Mild, Verified 08/28/17 07:50) RASH - Physical Exam Vital Signs: Vital Signs 08/28/17 07:00 Temperature 98.6 F Pulse Rate 80 Respiratory 19 Rate Blood Pressure 153/77 H O2 Sat by Pulse 96 Oximetry Mental Status: Alert & Oriented x3 Neuro: WNL Heart: WNL Lungs: WNL GI: WNL - {Optional Preform as Required} Abdomen: Other (healing post ap scar with ecchymosis in lower abdomen) - Impression Impression: melena. fecal occult blood loss on Plavix/Meloxicam Pt. Evaluated Today:Candidate for Anesthesia & Procedure: Yes - Date & Time Date: 08/28/17 Time: 08:34 Short Stay Discharge - Short Stay Discharge Admitting Diagnosis/Reason for Visit: MELENA / GERD WITH ESOPHAGITIS Disposition: HOME/ ROUTINE
[2017-08-28 09:06] VITALS: TEMP 98.2
[2017-08-28 09:39] VITALS: O2SAT 97
[2017-08-28 09:40] VITALS: BP 148/62; PULSE 58; RESP 16
== END 2017-08-28 10:10 | disposition home or self-care (01) ==
LOC: C.ENDO 06:43
PROVIDERS: ATTEND Internal Medicine Gastroenterology
DX: K92.1 Melena (principal); R19.5 Other fecal abnormalities; K44.9 Diaphragmatic hernia without obstruction or gangrene; K29.70 Gastritis, unspecified, without bleeding; K20.9 Esophagitis, unspecified
CPT/HCPCS: 43239; 88305; J2704; J7120

== ENCOUNTER 2017-10-03 06:52 | Day surgery (SDC) | payer MEDICARE, BC ==
--- NOTE | 2017-10-03 09:47 | CP.SDSHP ---
Same Day Surgery H & P - History Proposed Procedure: colonoscopy Pre-Op Diagnosis: FOB loss. Melena. h/o colon polyps (2012) - Previous Medical/Surgical History Cardiac: Hypertension, ASHD/CAD, PVD, Other (hyperlipidemia, gerd, gastritis, Diverticulosis) Endocrine/Metabolic: Diabetes, Obesity Neuro: Backaches Misc: Other (colon polyps, diverticulosis, Gstritis, gerd) Previous Surgical History: x1 - Allergies Allergies: Allergies aspirin Allergy (Mild, Verified 10/03/17 07:32) DIZZINESS Penicillins Allergy (Mild, Verified 10/03/17 07:32) RASH FISH Allergy (Verified 10/03/17 07:32) SWELLING SEASONAL Allergy (Uncoded 10/03/17 07:32) CONGESTION - Physical Exam Vital Signs: Vital Signs 10/03/17 07:15 Temperature 98.2 F Pulse Rate 72 Respiratory 19 Rate Blood Pressure 152/63 H O2 Sat by Pulse 97 Oximetry Mental Status: Alert & Oriented x3 Neuro: WNL Heart: WNL Lungs: WNL GI: WNL - Impression Impression: FOB loss. Melena. Anemia. h/o colon polyps Pt. Evaluated Today:Candidate for Anesthesia & Procedure: Yes - Date & Time Date: 10/03/17 Time: 09:48 Short Stay Discharge - Short Stay Discharge Admitting Diagnosis/Reason for Visit: IRON DEFICIENCY ANEMIA ACUTE GASTRITIS Disposition: HOME/ ROUTINE
[2017-10-03] MEDS ORDERED: Midazolam 2 MG/2 ML VIAL ONE (09:50)
[2017-10-03] MEDS ORDERED: Propofol 10 mg/ml Inj (20 ML) ONE (09:50)
[2017-10-03] MEDS ORDERED: Lactated Ringer's 500 ML IV ONE (09:51)
[2017-10-03 10:40] VITALS: TEMP 98.7
[2017-10-03 10:49] VITALS: O2SAT 100
[2017-10-03 11:37] VITALS: BP 136/55; PULSE 62; RESP 12
== END 2017-10-03 11:45 | disposition home or self-care (01) ==
LOC: C.ENDO 06:52
PROVIDERS: ATTEND Internal Medicine Gastroenterology
DX: K63.5 Polyp of colon (principal); D12.5 Benign neoplasm of sigmoid colon; K64.8 Other hemorrhoids; K57.90 Diverticulosis of intestine, part unspecified, without perforation or abscess without bleeding
CPT/HCPCS: 45380; 88305; J2250; J2704; J7120

== ENCOUNTER 2018-10-18 10:44 | Outpatient (CLI) | payer MEDICARE, BC | END 2018-10-18 10:45 | disposition home or self-care (01) | LOC: C.CTH 10:44 ==

== ENCOUNTER 2018-12-19 20:14 | Inpatient (IN) | payer MEDICARE, BC ==
[2018-12-19 20:15] VITALS: BMI 29.2
--- NOTE | 2018-12-19 20:52 | C.PDOC ---
History Of Present Illness pt was seen in dr loera's office this afternoon and found to be hypoxic into the 80's aven after some duoneb treatments. Pt still smokes ppd. No f/c/n/v. Speaks in 4-5 word sentenced. Time Seen by Provider: 12/19/18 20:52 History Per: Patient, Family History/Exam Limitations: no limitations Onset/Duration Of Symptoms: Days Current Symptoms Are (Timing): Worse Severity: Severe Pain Scale Rating Of: 8 Reports Recently: Seen In ED, Treated By A Physician Recent travel outside of the [place]: No Additional History Per: Family Past Medical History Reviewed: Historical Data, Nursing Documentation, Vital Signs - Medical History PMH: Anemia, Arthritis (HANDS), Colonic Polyps, Gastritis, HTN, Hypercholesterolemia, Hyperlipidemia, Pneumonia (AFTER RECENT SURGERY), TIA (8 YEARS AGO; EYES TWITCHING. NO WEAKNESS) Denies: Fractures, Chronic Kidney Disease Surgical History: Appendectomy (08/02/17), Endoscopy - [facility] Procedures OTHER LOCAL DESTRUC SKIN (04/27/98) RESECTION OF APPENDIX, PERCUTANEOUS ENDOSCOPIC APPROACH (08/02/17) Family History: States: No Known Family Hx - Social History Hx Alcohol Use: No Hx Substance Use: No Review Of Systems Constitutional: Negative for: Fever, Chills Eyes: Negative for: Vision Change ENT: Negative for: Throat Pain Cardiovascular: Negative for: Chest Pain Respiratory: Positive for: Cough, Shortness of Breath, Wheezing Gastrointestinal: Negative for: Nausea, Vomiting, Diarrhea Genitourinary: Negative for: Dysuria Musculoskeletal: Negative for: Back Pain Skin: Negative for: Rash Neurological: Negative for: Weakness Psych: Negative for: Anxiety Physical Exam - Physical Exam Appears: In Acute Distress Skin: Warm, Dry Head: Normacephalic Eye(s): bilateral: Normal Inspection Oral Mucosa: Moist Throat: No Erythema Neck: Supple Chest: Symmetrical Cardiovascular: Rhythm Regular Respiratory: Decreased Breath Sounds, No Rales, Rhonchi, Wheezing Gastrointestinal/Abdominal: Soft, No Tenderness, No Distention Back: No CVA Tenderness Extremity: Normal ROM Extremity: Bilateral: Atraumatic Pulses: Left Dorsalis Pedis: Normal, Right Dorsalis Pedis: Normal Neurological/Psych: Oriented x3 Gait: Steady ED Course And Treatment ECG: Interpreted By Me, Viewed By Me ECG Rhythm: Sinus Rhythm, Nonspecific Changes O2 Sat by Pulse Oximetry: 84 Pulse Ox Interpretation: Abnormal - Radiology CXR: Interpreted by Me, Viewed By Me CXR Interpretation: Yes: Infiltrates (rll). No: Fracture, Pnemothorax Critical Care Time - Critical Care Note Total Time (in mins): 30 Documented critical care: time excludes all time spent performing seperately billable procedures. Disposition Discussed With DrVishal: Bertha Loera Comment: accepted the pt on his service and took over the care at 9:39 PM Doctor Will See Patient In The: Hospital Counseled Patient/Family Regarding: Studies Performed, Diagnosis - Disposition Disposition: HOSPITALIZED Disposition Time: 20:52 Condition: FAIR - Clinical Impression Clinical Impression: Dyspnea, Pneumonia, Hypoxia Decision To Admit - Pt Status Changed To: Hospital Disposition Of: Inpatient - Admit Certification Admit to Inpatient:: After my assessment, the patient will require hospitalization for at least two midnights. This is because of the severity of symptoms shown, intensity of services needed, and/or the medical risk in this patient being treated as an outpatient. - InPatient: Physician Admission Certification: I certify that this patient requires 2 or more midnights of care for the following reason:: After my assessment, the patient will require hospitalization for at least two midnights. This is because of the severity of symptoms shown, intensity of services needed, and/or the medical risk in this patient being treated as an outpatient. - . Bed Request Type: Regular Admitting Physician: Bertha Loera Patient Diagnosis: Dyspnea, Pneumonia, Hypoxia
[2018-12-19] MEDS ORDERED: Sodium Chloride 0.9% 1,000 ML IV ONE (21:16)
[2018-12-19] MEDS ORDERED: Albuterol-Ipratrop 3 mg / 0.5 (3 ml) UD IH STA (21:16)
[2018-12-19] MEDS ORDERED: Moxifloxacin IV 400mg/250ml NS 400 MG/250 ML BAG IVPB ONE ×2 (21:32→21:46)
--- NOTE | 2018-12-19 21:49 | CP.PCM.HP ---
History of Present Illness - History of Present Illness History of Present Illness: Chief complaint: Worsening shortness of breath and cough for 5 days duration History of present illness: 73-year-old female with a history of hypertension osteoarthritis came to my office with increasing cough, cough associated with mucus production for 5 days duration. Last week the patient went to the hospital had a MRI, and she is scheduled to have the surgical intervention for the adrenal mass suspected cancer. But over the next few days he started having increasing sore throat, sore throat also having some chills and feverish, associate with the some chest discomfort. Worsening cough noted. No cough with thick yellow mucus reduction present In my office I given nebulizer treatment, but following the nebulizer patient was not improving, her oxygen saturation was 86%, I recommended her to go to the hospital. Now patient is in the emergency room, her oxygen saturation is only 84%, not improving with bronchodilator, placed on oxygen supplementation. No fever noted. Awaiting the labs at this time. Patient does not have any chest pain, she denies any abdominal pain, no nausea no vomiting noted. But having difficult time in completing a sentence Past medical history: Hypertension, osteoarthritis, COPD, adrenal mass Surgical history: Status post appendectomy Allergies: Aspirin and penicillin Personal history: Patient is to be a heavy smoker, still continues to smoke Denies any alcohol Her functional capacity is Significantly limited because of the shortness of breath, arthritis. Family history noncontributory Review of systems: Patient is complaining of on and off headache, no visual symptom, complaining of progressively increasing cough, shortness of breath, cough associate with mucus production now. Unable to complete a sentence. No abdominal pain. Denies any nausea. Leg swelling is negative. Patient recently seen by ENT specialist for left ear hard of hearing, which happened suddenly. Patient is placed on prednisone orally Vital signs reviewed No neck vein distention noted Bilateral diffuse rales and wheezing noted more on the right side CVS regular heart sound, no murmur noted Abdomen soft but right lower quadrant tenderness noted Extremities no pedal edema SOURCING MANAGER alert awake oriented -3, no functional neurological deficit Chest x-ray showing evidence of right lower lung and right middle lung pneumonia Oxygen saturation is on the low side Rest of the labs are currently pending Assessment and recommendation: 72-year-old female with a history of arthritis, hypertension. History of appendectomy. Patient has adrenal adenoma. Suspected malignancy, scheduled to have a surgery. Now came to the emergency room with worsening pneumonia, and COPD exacerbation with worsening hypoxia. We will start the patient on Avelox, Zithromax IV, Solu-Medrol, bronchodilator We will get a sputum culture DVT and GI prophylaxis Oxygen supplementation. I spoke to the patient's family in detail. Overall prognosis is guarded. Patient supposed to be scheduled for adrenal surgery, currently postponed because of the current illness. We will continue to monitor Present on Admission - Present on Admission Any Indicators Present on Admission: No History of DVT/PE: No History of Uncontrolled Diabetes: No Urinary Catheter: No Decubitus Ulcer Present: No Past Patient History - Past Medical History & Family History Past Medical History?: Yes - Past Social History Smoking Status: Heavy Smoker > 10 Cigarettes Daily - CARDIAC Hx Hypercholesterolemia: Yes Hx Hypertension: Yes - PULMONARY Hx Pneumonia: Yes (AFTER RECENT SURGERY) - NEUROLOGICAL Hx Transient Ischemic Attacks (TIA): Yes (8 YEARS AGO; EYES TWITCHING. NO WEAKNESS) - HEENT Hx HEENT Problems: Yes Hx Cataracts: Yes (ARIAS.) - RENAL Hx Chronic Kidney Disease: No - ENDOCRINE/METABOLIC Hx Endocrine Disorders: No - HEMATOLOGICAL/ONCOLOGICAL Hx Anemia: Yes - INTEGUMENTARY Hx Dermatological Problems: Yes Hx Eczema: Yes Other/Comment: ROSCEA - MUSCULOSKELETAL/RHEUMATOLOGICAL Hx Arthritis: Yes (HANDS) Hx Fractures: No - GASTROINTESTINAL Hx Gastritis: Yes - GENITOURINARY/GYNECOLOGICAL Hx Genitourinary Disorders: No - PSYCHIATRIC Hx Substance Use: No - SURGICAL HISTORY Hx Appendectomy: Yes (08/02/17) - ANESTHESIA Hx Anesthesia: Yes Hx Anesthesia Reactions: No Hx Malignant Hyperthermia: No Meds Allergies/Adverse Reactions: Allergies Allergy/AdvReac Type Severity Reaction Status Date / Time aspirin Allergy Mild DIZZINESS Verified 12/19/18 20:45 Penicillins Allergy Mild RASH Verified 12/19/18 20:45 FISH Allergy SWELLING Verified 12/19/18 20:45 SEASONAL Allergy CONGESTION Uncoded 12/19/18 20:45 Results - Vital Signs Recent Vital Signs: Last Vital Signs Temp 98.2 F 12/19/18 21:02 Pulse 82 12/19/18 20:39 Resp 18 12/19/18 20:39 BP 132/53 L 12/19/18 20:39 Pulse Ox 84 L 12/19/18 21:42
[2018-12-19 22:03] LABS: ARTERIAL BLOOD GAS HCO3 25.1 mmol/L (21-28); ARTERIAL BLOOD GAS O2 SAT 98.4 % (95-98); ARTERIAL BLOOD GAS PCO2 32 mm/Hg (35-45); ARTERIAL BLOOD GAS PH 7.47 (7.35-7.45); ARTERIAL BLOOD GAS PO2 83 mm/Hg (80-100); ARTERIAL BLOOD GAS TCO2 24.3 mmol/L (22-28)
[2018-12-19] MEDS: MethylPREDNISolone 40 mg Vial IVP SCH (22:30)
[2018-12-19 22:47] LABS: BASO % 0.2 % (0.0-2.0); HEMOGLOBIN 15.9 g/dL (11.0-16.0); LYMPH # 1.4 K/uL (1.0-4.3); LYMPH % 21.4 % (20.0-40.0); MEAN CORPUSCULAR HEMOGLOBIN 31.4 pg (27.0-31.0); MEAN CORPUSCULAR HGB CONC 32.4 g/dL (33.0-37.0); MONO # 0.5 K/uL (0.0-0.8); MONO % 7.5 % (0.0-10.0); NEUT # 4.7 K/uL (1.8-7.0); NEUT % 70.9 % (50.0-75.0); NRBC % 0.2 % (0.0-2.0); RBC 5.06 Mil/uL (3.80-5.20); RED CELL DISTRIBUTION WIDTH 13.6 % (11.5-14.5); WHITE BLOOD COUNT 6.6 K/uL (4.8-10.8)
[2018-12-19 22:58] LABS: ALB/GLOB RATIO 1.4 (1.0-2.1); ALBUMIN 3.9 g/dL (3.5-5.0); BLOOD UREA NITROGEN 20 mg/dL (7-17); CALCIUM 9.2 mg/dl (8.6-10.4); GFR NON-AFRICAN AMERICAN > 60
[2018-12-19 23:00] LABS: ALT/SGPT 18 U/L (9-52); AST/SGOT 46 U/L (14-36)
[2018-12-19] MEDS: Azithromycin 500mg/250ML NS 500 MG/250 ML BAG IVPB SCH (23:30)
[2018-12-19 23:43] LABS: INR 1.1; PROTHROMBIN TIME 11.5 SECONDS (9.7-12.2)
[2018-12-20] MEDS: Albuterol-Ipratrop 3 mg / 0.5 (3 ml) UD INH SCH ×3 (01:04→20:56)
[2018-12-20 01:07] VITALS: RESP 20
[2018-12-20] MEDS: MethylPREDNISolone 40 mg Vial IVP SCH ×3 (05:41→22:05)
[2018-12-20 06:46] LABS: SQUAMOUS EPITHIAL < 1 /hpf (0-5); URINE BILIRUBIN NEGATIVE (NEGATIVE); URINE BLOOD NEGATIVE (NEGATIVE); URINE CLARITY Clear (Clear); URINE COLOR Straw (YELLOW); URINE GLUCOSE (UA) NORMAL (Normal); URINE LEUKOCYTE ESTERASE NEG Leu/uL (Negative); URINE PROTEIN NEGATIVE (NEGATIVE); URINE UROBILINOGEN NORMAL mg/dL (0.2-1.0)
--- NOTE | 2018-12-20 08:27 | RAD ---
Chest x-ray single frontal view HISTORY: Shortness of breath. COMPARISON: 08/02/2017 FINDINGS: Mild venous congestion. Patchy increased markings in the right infrahilar region. Heart size within normal limits. Degenerative changes in the spine and shoulders. Impression: Mild venous congestion. Patchy increased markings in the right infrahilar region.
--- NOTE | 2018-12-20 09:20 | CP.PCM.PN ---
Subjective - Date & Time of Evaluation Date of Evaluation: 12/20/18 Time of Evaluation: 09:19 - Subjective Subjective: Patient is morning having still a worsening cough. Cough is slight improvement, she is also feeling slightly better. Mucus production thick yellow noted. Currently receiving Avelox and Zithromax. On examination: Vital signs are stable. Mild hypoxia noted, chest good air entry bilaterally, right lower lung rales noted Abdomen soft, no pedal edema noted. Patient's medications reviewed We will continue the antibiotic for now. Assessment and recommendation: 71-year-old female with a history of hypertension high cholesterol and history of osteoarthritis and osteoporosis COPD chronic smoker. Patient now admitted with a COPD exacerbation with associated pneumonia nonspecific. Sputum culture is currently pending Continue the out of bed to chair and physical therapy will follow the patient Objective - Vital Signs/Intake and Output Vital Signs (last 24 hours): Temp Pulse Resp BP Pulse Ox 97.6 F 61 20 135/60 93 L 12/20/18 07:57 12/20/18 07:57 12/20/18 07:57 12/20/18 07:57 12/20/18 07:57 Intake and Output: 12/20/18 12/20/18 06:59 18:59 Intake Total 880 Balance 880 - Medications Medications: Current Medications Albuterol/Ipratropium (Duoneb 3 Mg/0.5 Mg (3 Ml) Ud) 3 ml INH RQ6 [facility] Last Admin: 12/20/18 08:32 Dose: 3 ml Famotidine (Pepcid) 20 mg PO DAILY [facility] Heparin Sodium (Porcine) (Heparin) 5,000 units SC Q8 [facility] Last Admin: 12/20/18 05:40 Dose: 5,000 units Moxifloxacin HCl (Avelox Iv 400mg/250ml Ns) 400 mg in 250 mls @ 167 mls/hr IVPB Q24H [facility]; Protocol Azithromycin (Zithromax 500mg In Ns Addvantage) 500 mg in 250 mls @ 167 mls/hr IVPB Q24H [facility]; Protocol Last Admin: 12/19/18 23:30 Dose: 167 mls/hr Methylprednisolone (Solu-Medrol) 40 mg IVP Q8 [facility] Last Admin: 12/20/18 05:41 Dose: 40 mg Tiotropium [place] (Spiriva) 18 mcg INH RQ24 [facility] - Labs Labs: 12/19/18 22:40 12/19/18 22:40 PT 11.5 SECONDS (9.7-12.2) 12/19/18 23:32 INR 1.1 12/19/18 23:32 APTT 27 SECONDS (21-34) 12/19/18 23:32
[2018-12-20] MEDS: Moxifloxacin IV 400mg/250ml NS 400 MG/250 ML BAG IVPB SCH (09:59)
[2018-12-20] MEDS: Azithromycin 500mg/250ML NS 500 MG/250 ML BAG IVPB SCH (22:05)
[2018-12-21] MEDS: Albuterol-Ipratrop 3 mg / 0.5 (3 ml) UD INH SCH ×3 (02:25→19:18)
[2018-12-21] MEDS: MethylPREDNISolone 40 mg Vial IVP SCH ×3 (06:12→22:15)
[2018-12-21 07:28] LABS: BLOOD UREA NITROGEN 20 mg/dL (7-17); CALCIUM 9.4 mg/dl (8.6-10.4); GFR NON-AFRICAN AMERICAN > 60
[2018-12-21 07:38] LABS: BASO % 0.1 % (0.0-2.0); HEMOGLOBIN 14.9 g/dL (11.0-16.0); LYMPH # 0.9 K/uL (1.0-4.3); LYMPH % 15.6 % (20.0-40.0); MEAN CELL VOLUME 97.3 fL (81.0-99.0); MEAN CORPUSCULAR HEMOGLOBIN 32.8 pg (27.0-31.0); MEAN CORPUSCULAR HGB CONC 33.7 g/dL (33.0-37.0); MEAN PLATELET VOLUME 10.4 fL (7.2-11.7); MONO # 0.3 K/uL (0.0-0.8); MONO % 5.3 % (0.0-10.0); NEUT # 4.6 K/uL (1.8-7.0); NRBC % 0.1 % (0.0-2.0); RBC 4.54 Mil/uL (3.80-5.20); RED CELL DISTRIBUTION WIDTH 13.5 % (11.5-14.5); WHITE BLOOD COUNT 5.8 K/uL (4.8-10.8)
[2018-12-21] MEDS: Tiotropium 18 mcg Cap For Inhalation INH SCH (09:23)
[2018-12-21] MEDS ORDERED: Influenza Vaccine 60 mcg/0.5 mL SYR (4YR UP) IM ONE (10:00)
[2018-12-21] MEDS: Moxifloxacin IV 400mg/250ml NS 400 MG/250 ML BAG IVPB SCH (10:05)
--- NOTE | 2018-12-21 11:05 | RAD ---
Chest x-ray two views HISTORY: Pneumonia. Comparison: 12/19/2018 FINDINGS: Diffuse increased interstitial lung markings which may represent chronic changes however superimposed acute interstitial infiltrates cannot be excluded. Clinical correlation. Biapical pleural thickening with upper lobe granulomatous changes. Persistent 8 millimeter nodular density projecting over the lateral aspect of the left upper lung zone. Mild patchy increased markings at the lung bases. Heart size within normal limits. Degenerative changes in the spine and shoulders. Bilateral hilar prominence. Impression: Diffuse increased interstitial lung markings which may represent chronic changes however superimposed acute interstitial infiltrates cannot be excluded. Clinical correlation. Biapical pleural thickening with upper lobe granulomatous changes. Persistent 8 millimeter nodular density projecting over the lateral aspect of the left upper lung zone. Mild patchy increased markings at the lung bases. Heart size within normal limits. Degenerative changes in the spine and shoulders. Bilateral hilar prominence.
[2018-12-21] MEDS: Azithromycin 500mg/250ML NS 500 MG/250 ML BAG IVPB SCH (21:50)
[2018-12-22] MEDS ORDERED: guaiFENesin 100 mg/5 ml Syrup UD PO STA (01:35)
[2018-12-22] MEDS: Albuterol-Ipratrop 3 mg / 0.5 (3 ml) UD INH SCH ×2 (04:01→19:49)
[2018-12-22 08:18] VITALS: O2SAT 95
[2018-12-22] MEDS: MethylPREDNISolone 40 mg Vial IVP SCH ×2 (09:39→21:22)
[2018-12-22] MEDS: Moxifloxacin IV 400mg/250ml NS 400 MG/250 ML BAG IVPB SCH (09:39)
--- NOTE | 2018-12-22 12:15 | CP.PCM.PN ---
Subjective - Date & Time of Evaluation Date of Evaluation: 12/22/18 Time of Evaluation: 17:00 - Subjective Subjective: Patient is still having increasing coughing episodes. Patient also have cyanosis on the peripheral area. Cough noted, shortness of breath even with minimal exertion noted. Room air oxygen saturation is 86%, still need oxygen at this time. Wheezing noted On examination: Vital signs noted. Hypoxia present. Chest bilateral diffuse rhonchi and wheezing noted. Expiratory flow rate is extremely low. heart sounds are regular Nontender abdomen. No pedal edema Assessment and recommendation: 73-year-old female with a history of COPD, hypertension, high cholesterol, osteoarthritis. Admitted with community acquired pneumonia, as well as COPD exacerbation with the severe hypoxia. We will continue the current treatment. And will follow the patient. Patient will need a few more days of antibiotic bronchodilators corticosteroid, may need home oxygen. We will follow-up the patient Objective - Vital Signs/Intake and Output Vital Signs (last 24 hours): Temp Pulse Resp BP Pulse Ox 97.9 F 66 20 165/73 H 95 12/22/18 08:17 12/22/18 08:17 12/22/18 08:17 12/22/18 08:17 12/22/18 08:17 Intake and Output: 12/22/18 12/22/18 06:59 18:59 Intake Total 250 300 Output Total 300 Balance -50 300 - Medications Medications: Current Medications Acetylcysteine (Acetylcysteine 20%) 4 ml INH Q6H [facility] Albuterol/Ipratropium (Duoneb 3 Mg/0.5 Mg (3 Ml) Ud) 3 ml INH RQ6 [facility] Last Admin: 12/22/18 04:01 Dose: Not Given Amlodipine Besylate (Norvasc) 5 mg PO BID [facility] Last Admin: 12/22/18 09:39 Dose: 5 mg Famotidine (Pepcid) 20 mg PO DAILY [facility] Last Admin: 12/22/18 09:39 Dose: 20 mg Heparin Sodium (Porcine) (Heparin) 5,000 units SC Q8 [facility] Last Admin: 12/22/18 05:38 Dose: 5,000 units Moxifloxacin HCl (Avelox Iv 400mg/250ml Ns) 400 mg in 250 mls @ 167 mls/hr IVPB Q24H [facility]; Protocol Last Admin: 12/22/18 09:39 Dose: 167 mls/hr Azithromycin (Zithromax 500mg In Ns Addvantage) 500 mg in 250 mls @ 167 mls/hr IVPB Q24H [facility]; Protocol Last Admin: 12/21/18 21:50 Dose: 167 mls/hr Methylprednisolone (Solu-Medrol) 40 mg IVP Q12 [facility] Last Admin: 12/22/18 09:39 Dose: 40 mg Tiotropium [place] (Spiriva) 18 mcg INH RQ24 [facility] Last Admin: 12/21/18 09:23 Dose: 18 mcg - Labs Labs: 12/21/18 06:37 12/21/18 06:37 PT 11.5 SECONDS (9.7-12.2) 12/19/18 23:32 INR 1.1 12/19/18 23:32 APTT 27 SECONDS (21-34) 12/19/18 23:32
[2018-12-22] MEDS: Acetylcysteine 20% Inhal Soln (4ml) INH SCH (19:49)
[2018-12-22] MEDS: Azithromycin 500mg/250ML NS 500 MG/250 ML BAG IVPB SCH (21:22)
[2018-12-23] MEDS: Albuterol-Ipratrop 3 mg / 0.5 (3 ml) UD INH SCH ×2 (01:58→07:55)
[2018-12-23] MEDS: Acetylcysteine 20% Inhal Soln (4ml) INH SCH ×2 (01:58→07:55)
[2018-12-23 06:25] LABS: BASO % 0.2 % (0.0-2.0); HEMOGLOBIN 15.1 g/dL (11.0-16.0); LYMPH # 0.7 K/uL (1.0-4.3); LYMPH % 13.9 % (20.0-40.0); MEAN CELL VOLUME 96.5 fL (81.0-99.0); MEAN CORPUSCULAR HEMOGLOBIN 32.7 pg (27.0-31.0); MEAN CORPUSCULAR HGB CONC 33.9 g/dL (33.0-37.0); MEAN PLATELET VOLUME 9.4 fL (7.2-11.7); MONO # 0.2 K/uL (0.0-0.8); MONO % 4.6 % (0.0-10.0); NEUT # 3.9 K/uL (1.8-7.0); NEUT % 81.3 % (50.0-75.0); RBC 4.63 Mil/uL (3.80-5.20); WHITE BLOOD COUNT 4.8 K/uL (4.8-10.8)
[2018-12-23 06:42] LABS: ALB/GLOB RATIO 1.8 (1.0-2.1); ALBUMIN 3.5 g/dL (3.5-5.0); ALT/SGPT 50 U/L (9-52); AST/SGOT 21 U/L (14-36); BLOOD UREA NITROGEN 16 mg/dL (7-17); CALCIUM 8.4 mg/dl (8.6-10.4); GFR NON-AFRICAN AMERICAN > 60
[2018-12-23 07:47] VITALS: BP 143/70; PULSE 60; TEMP 97.3
[2018-12-23] MEDS: Tiotropium 18 mcg Cap For Inhalation INH SCH (07:55)
[2018-12-23] MEDS: MethylPREDNISolone 40 mg Vial IVP SCH (09:17)
[2018-12-23] MEDS: Moxifloxacin IV 400mg/250ml NS 400 MG/250 ML BAG IVPB SCH (09:22)
--- NOTE | 2018-12-23 13:39 | CP.PCM.DIS ---
Provider - Provider Date of Admission: 12/19/18 21:37 Attending physician: Bertha Loera MD Time Spent in preparation of Discharge (in minutes): 45 Hospital Course - Lab Results Lab Results: Micro Results 12/19/18 22:37 Blood Blood Culture - Preliminary NO GROWTH AFTER 3 DAYS 12/19/18 22:34 Blood Blood Culture - Preliminary NO GROWTH AFTER 3 DAYS 12/20/18 08:35 Sputum Gram Stain - Final 12/20/18 08:35 Sputum Sputum Culture - Final NORMAL ORAL VARUN Most Recent Lab Values WBC 4.8 K/uL (4.8-10.8) 12/23/18 06:15 RBC 4.63 Mil/uL (3.80-5.20) 12/23/18 06:15 Hgb 15.1 g/dL (11.0-16.0) 12/23/18 06:15 Hct 44.6 % (34.0-47.0) 12/23/18 06:15 MCV 96.5 fL (81.0-99.0) 12/23/18 06:15 MCH 32.7 pg (27.0-31.0) H 12/23/18 06:15 MCHC 33.9 g/dL (33.0-37.0) 12/23/18 06:15 RDW 13.0 % (11.5-14.5) 12/23/18 06:15 Plt Count 141 K/uL (130-400) 12/23/18 06:15 MPV 9.4 fL (7.2-11.7) 12/23/18 06:15 Neut % (Auto) 81.3 % (50.0-75.0) H 12/23/18 06:15 Lymph % (Auto) 13.9 % (20.0-40.0) L 12/23/18 06:15 Jackson % (Auto) 4.6 % (0.0-10.0) 12/23/18 06:15 Eos % (Auto) 0.0 % (0.0-4.0) 12/23/18 06:15 Baso % (Auto) 0.2 % (0.0-2.0) 12/23/18 06:15 Neut # (Auto) 3.9 K/uL (1.8-7.0) 12/23/18 06:15 Lymph # (Auto) 0.7 K/uL (1.0-4.3) L 12/23/18 06:15 Jackson # (Auto) 0.2 K/uL (0.0-0.8) 12/23/18 06:15 Eos # (Auto) 0.0 K/uL (0.0-0.7) 12/23/18 06:15 Baso # (Auto) 0.0 K/uL (0.0-0.2) 12/23/18 06:15 Differential Comment 12/21/18 06:37 PT 11.5 SECONDS (9.7-12.2) 12/19/18 23:32 INR 1.1 12/19/18 23:32 APTT 27 SECONDS (21-34) 12/19/18 23:32 Puncture Site Rba 12/19/18 21:58 pCO2 32 mm/Hg (35-45) L 12/19/18 21:58 pO2 83 mm/Hg (80-100) 12/19/18 21:58 HCO3 25.1 mmol/L (21-28) 12/19/18 21:58 ABG pH 7.47 (7.35-7.45) H 12/19/18 21:58 ABG Total CO2 24.3 mmol/L (22-28) 12/19/18 21:58 ABG O2 Saturation 98.4 % (95-98) H 12/19/18 21:58 ABG Base Excess 0.3 mmol/L (-2.0-3.0) 12/19/18 21:58 Bob Test Na 12/19/18 21:58 ABG Potassium 3.1 mmol/L (3.6-5.2) L 12/19/18 21:58 Sodium 145.0 mmol/l (132-148) 12/19/18 21:58 Chloride 116.0 mmol/L (98-107) H 12/19/18 21:58 Glucose 223 mg/dl (65-105) H 12/19/18 21:58 Lactate 1.1 mmol/L (0.7-2.1) 12/19/18 21:58 Liter Flow 2.0 12/19/18 21:58 Sodium 138 mmol/L (132-148) 12/23/18 06:15 Potassium 4.3 mmol/L (3.6-5.2) 12/23/18 06:15 Chloride 98 mmol/L (98-107) 12/23/18 06:15 Carbon Dioxide 33 mmol/L (22-30) H 12/23/18 06:15 Anion Gap 10 (10-20) 12/23/18 06:15 BUN 16 mg/dL (7-17) 12/23/18 06:15 Creatinine 0.5 mg/dL (0.7-1.2) L 12/23/18 06:15 Est GFR ( Amer) > 60 12/23/18 06:15 Est GFR (Non-Af Amer) > 60 12/23/18 06:15 POC Glucose (mg/dL) 248 mg/dL (65-110) H 12/23/18 11:37 Random Glucose 234 mg/dL (65-105) H 12/23/18 06:15 Calcium 8.4 mg/dl (8.6-10.4) L 12/23/18 06:15 Phosphorus 3.6 mg/dL (2.5-4.5) 12/23/18 06:15 Magnesium 2.2 mg/dL (1.6-2.3) 12/23/18 06:15 Total Bilirubin 0.4 mg/dL (0.2-1.3) 12/23/18 06:15 AST 21 U/L (14-36) 12/23/18 06:15 ALT 50 U/L (9-52) 12/23/18 06:15 Alkaline Phosphatase 47 U/L (38-126) 12/23/18 06:15 Troponin I < 0.0120 ng/mL (0.00-0.120) 12/19/18 22:40 Total Protein 5.4 g/dL (6.3-8.3) L 12/23/18 06:15 Albumin 3.5 g/dL (3.5-5.0) 12/23/18 06:15 Globulin 1.9 gm/dL (2.2-3.9) L 12/23/18 06:15 Albumin/Globulin Ratio 1.8 (1.0-2.1) 12/23/18 06:15 Arterial Blood Potassium 3.1 mmol/L (3.6-5.2) L 12/19/18 21:58 Urine Color Straw (YELLOW) 12/20/18 06:38 Urine Clarity Clear (Clear) 12/20/18 06:38 Urine pH 6.0 (5.0-8.0) 12/20/18 06:38 Ur Specific [place] 1.005 (1.003-1.030) 12/20/18 06:38 Urine Protein Negative mg/dL (NEGATIVE) 12/20/18 06:38 Urine Glucose (UA) Normal mg/dL (Normal) 12/20/18 06:38 Urine Ketones Negative mg/dL (NEGATIVE) 12/20/18 06:38 Urine Blood Negative (NEGATIVE) 12/20/18 06:38 Urine Nitrate Negative (NEGATIVE) 12/20/18 06:38 Urine Bilirubin Negative (NEGATIVE) 12/20/18 06:38 Urine Urobilinogen Normal mg/dL (0.2-1.0) 12/20/18 06:38 Ur Leukocyte Esterase Neg Baljinder/uL (Negative) 12/20/18 06:38 Urine WBC (Auto) < 1 /hpf (0-5) 12/20/18 06:38 Ur Squamous Epith Cells < 1 /hpf (0-5) 12/20/18 06:38 Alcohol, Quantitative < 10 mg/dl (0-10) 12/19/18 22:40 Influenza Typ A,B (EIA) Negative for flu a/b (NEGATIVE) 12/19/18 22:34 - Hospital Course Hospital Course: Chief complaint: Worsening shortness of breath and cough for 5 days duration History of present illness: 73-year-old female with a history of hypertension osteoarthritis came to my office with increasing cough, cough associated with mucus production for 5 days duration. Last week the patient went to the hospital had a MRI, and she is scheduled to have the surgical intervention for the adrenal mass suspected cancer. But over the next few days he started having increasing sore throat, sore throat also having some chills and feverish, associate with the some chest discomfort. Worsening cough noted. No cough with thick yellow mucus reduction present In my office I given nebulizer treatment, but following the nebulizer patient was not improving, her oxygen saturation was 86%, I recommended her to go to the hospital. Now patient is in the emergency room, her oxygen saturation is only 84%, not im proving with bronchodilator, placed on oxygen supplementation. No fever noted. Awaiting the labs at this time. Patient does not have any chest pain, she denies any abdominal pain, no nausea no vomiting noted. But having difficult time in completing a sentence Past medical history: Hypertension, osteoarthritis, COPD, adrenal mass Surgical history: Status post appendectomy Allergies: Aspirin and penicillin Personal history: Patient is to be a heavy smoker, still continues to smoke Denies any alcohol Her functional capacity is Significantly limited because of the shortness of breath, arthritis. Family history noncontributory Review of systems: Patient is complaining of on and off headache, no visual symptom, complaining of progressively increasing cough, shortness of breath, cough associate with mucus production now. Unable to complete a sentence. No abdominal pain. Denies any nausea. Leg swelling is negative. Patient recently seen by ENT specialist for left ear hard of hearing, which happened suddenly. Patient is placed on prednisone orally Vital signs reviewed No neck vein distention noted Bilateral diffuse rales and wheezing noted more on the right side CVS regular heart sound, no murmur noted Abdomen soft but right lower quadrant tenderness noted Extremities no pedal edema [employer] alert awake oriented -3, no functional neurological deficit Chest x-ray showing evidence of right lower lung and right middle lung pneumonia Oxygen saturation is on the low side Rest of the labs are currently pending Assessment and recommendation: 72-year-old female with a history of arthritis, hypertension. History of appendectomy. Patient has adrenal adenoma. Suspected malignancy, scheduled to have a surgery. Now came to the emergency room with worsening pneumonia, and COPD exacerbation with worsening hypoxia. We will start the patient on Avelox, Zithromax IV, Solu-Medrol, bronchodilator We will get a sputum culture DVT and GI prophylaxis Oxygen supplementation. I spoke to the patient's family in detail. Overall prognosis is guarded. Patient supposed to be scheduled for adrenal surgery, currently postponed because of the current illness. We will continue to monitor course in the hospital: Patient is currently Course in the hospital: Patient admitted to the hospital with acute pneumonia Severe COPD exacerbation. Started on intravenous Avelox, Zithromax. Intravenous corticosteroid. Bronchodilators. Chest x-ray showing evidence of right lower lung pneumonia. Patient progresses slowly improving. Her cough is also improving. Started on Mucomyst. DVT prophylaxis also placed a Significant improvement in the cough and oxygenation noted. Upon discharge vital signs are stable. Room air oxygen saturation is 92%. No wheezing noted. Repeat chest x-ray no evidence of any pneumonia, no worsening pneumonia noted, no pleural effusion. Clinically stable. She will be discharged home today. Final diagnosis: COPD exacerbation with acute pneumonia. Committee acquired Continue the bronchodilators, nebulizer, Spiriva, Levaquin for 5 days. Zithromax Z-Jose for 5 days. We will follow the patient as an outpatient Discharge Plan - Discharge Medications Prescriptions: Albuterol 0.083% [Albuterol Sulfate 3 Ml] 3 ml IH TID #90 neb Ipratropium 0.02% [Ipratropium [place] 2.5 Ml] 2.5 ml IH TID #90 neb Prednisone [Deltasone] 20 mg PO DAILY #10 tablet Levofloxacin [Levaquin] 500 mg PO DAILY #7 tablet Tiotropium [Spiriva] 18 mcg INH RQ24 #30 cap - Follow Up Plan Condition: FAIR Disposition: HOME/ ROUTINE Instructions: Levofloxacin (Systemic), Pneumonia, Adult (DC), Pertussis, Adult (DC), Ipratropium and Albuterol, Prednisone, Tiotropium Additional Instructions: d/c home today today and f/u in one week Referrals: Bertha Loera MD [Staff Provider] -
--- NOTE | 2018-12-24 16:58 | CP.PCM.PN ---
Subjective - Date & Time of Evaluation Date of Evaluation: 12/21/18 Time of Evaluation: 16:58 - Subjective Subjective: Patient is still having increasing coughing episodes. Patient also have cyanosis on the peripheral area. Cough noted, shortness of breath even with minimal exertion noted. Room air oxygen saturation is 82%, still need oxygen at this time. Wheezing noted On examination: Vital signs noted. Hypoxia present. Chest bilateral diffuse rhonchi and wheezing noted. Expiratory flow rate is extremely low. heart sounds are regular Nontender abdomen. No pedal edema Assessment and recommendation: 73-year-old female with a history of COPD, hypertension, high cholesterol, osteoarthritis. Admitted with community acquired pneumonia, as well as COPD exacerbation with the severe hypoxia. We will continue the current treatment. And will follow the patient. Patient will need a few more days of antibiotic bronchodilators corticosteroid, may need home oxygen. We will follow-up the patient Objective - Vital Signs/Intake and Output Vital Signs (last 24 hours): Temp Pulse Resp BP Pulse Ox 97.3 F L 60 20 143/70 95 12/23/18 07:00 12/23/18 07:00 12/23/18 07:00 12/23/18 07:00 12/23/18 07:00 - Labs Labs: 12/23/18 06:15 12/23/18 06:15 PT 11.5 SECONDS (9.7-12.2) 12/19/18 23:32 INR 1.1 12/19/18 23:32 APTT 27 SECONDS (21-34) 12/19/18 23:32
== END 2018-12-23 15:13 | disposition home or self-care (01) | DRG 190 ==
LOC: C.ER 20:14 → C.3T 21:37
PROVIDERS: ADMIT Internal Medicine; ATTEND Internal Medicine
DX: J44.0 Chronic obstructive pulmonary disease with (acute) lower respiratory infection (principal); J18.9 Pneumonia, unspecified organism; J44.1 Chronic obstructive pulmonary disease with (acute) exacerbation; D35.00 Benign neoplasm of unspecified adrenal gland; I10 Essential (primary) hypertension; R09.02 Hypoxemia; M19.041 Primary osteoarthritis, right hand; M19.042 Primary osteoarthritis, left hand; M81.0 Age-related osteoporosis without current pathological fracture; E78.5 Hyperlipidemia, unspecified; E78.00 Pure hypercholesterolemia, unspecified; F17.210 Nicotine dependence, cigarettes, uncomplicated; Z86.73 Personal history of transient ischemic attack (TIA), and cerebral infarction without residual deficits; Z86.010 Personal history of colon polyps; Z87.01 Personal history of pneumonia (recurrent); Z90.49 Acquired absence of other specified parts of digestive tract; Z88.4 Allergy status to anesthetic agent; Z88.0 Allergy status to penicillin